=== PATIENT | male | born 1980 | race Two or more races ===

== ENCOUNTER 2017-03-17 08:35 | Emergency (ER) | payer SELFPAY ==
[2017-03-17 08:43] VITALS: BMI 27.4
--- NOTE | 2017-03-17 09:56 | PDOC ---
History of Present Illness - General Chief Complaint: Pain Stated Complaint: BACK SIDE PAIN Time Seen by Provider: 03/17/17 08:56 History Source: Patient Exam Limitations: No Limitations - History of Present Illness Initial Comments: 03/17/17 10:03 CHIEF COMPLAINT:rectal pain and lower abdominal discomfort HISTORY OF PRESENT ILLNESS:Patient is 36-year-old old male with a history of hemorrhoids here today c/o rectal pain over the last 2 weeks with increased urge to pass gas. He reports that passing gas causing sharp rectal pain. Pt. also has sharp rectal pain when having a bowel movement. BM"S have been daily moderate size, brown formed, with no rectal bleeding or blood noted on stool on some days having 2 BM's. Rectal pain is relieved after passing gas or having a bowel movement. Patient denies any nausea, vomiting, diarrhea, fever, chills or constipation. Patient denies feeling any external hemorrhoids. Patient also reports having lower abdominal pressure. Patient also reports having to ride on his motorcycle as his only means of transportation for the last month. Patient reports that rectal pain is intense when he hits a bump, however he has this rectal pain when not on motorcycle with passing gas or having a bowel movement. Patient denies straining to have a bowel movement or having constipated stool. Patient denies any dietary changes. Patient denies any other symptoms. 03/17/17 10:22 ALLERGIES: PCN PAST MEDICAL HX: HEMORRHOIDS PCP: DR. LAKESHA MARRERO Timing/Duration: getting worse, intermittent Severity: severe (rectal pain) Associated Symptoms: reports: other (rectal pain ) Past History - Past Medical History Allergies/Adverse Reactions: Allergies Allergy/AdvReac Type Severity Reaction Status Date / Time Penicillins Allergy Verified 03/17/17 08:41 shellfish derived Allergy Verified 03/17/17 08:41 Home Medications: Ambulatory Orders Levofloxacin [Levaquin] 750 mg PO DAILY #7 tablet 03/17/17 Metronidazole [Flagyl -] 500 mg PO TID #21 tablet 03/17/17 Other medical history: denies - Psycho/Social/Smoking Cessation Hx Suicidal Ideation: No Smoking History: Never smoked Information on smoking cessation initiated: No Hx Alcohol Use: No Drug/Substance Use Hx: No Substance Use Type: None Review of Systems - Review of Systems Able to Perform ROS?: Yes Constitutional: No: Symptoms Reported HEENTM: No: Symptoms Reported Respiratory: No: Symptoms reported Cardiac (ROS): No: Symptoms Reported ABD/GI: Yes: Other (severe rectal pain, lower abdominal pressure, increased urge to pass gas,) Musculoskeletal: No: Symptoms Reported Integumentary: No: Symptoms Reported Neurological: No: Symptoms reported *Physical Exam - Vital Signs Last Vital Signs Temp Pulse Resp BP Pulse Ox 97.9 F 74 18 127/88 100 03/17/17 08:37 03/17/17 08:37 03/17/17 08:37 03/17/17 08:37 03/17/17 08:37 - Physical Exam General Appearance: Yes: Appropriately Dressed Respiratory/Chest: positive: Lungs Clear, Normal Breath Sounds. negative: Chest Tender, Respiratory Distress Cardiovascular: positive: Regular Rhythm, Regular Rate, S1, S2 Gastrointestinal/Abdominal: positive: Normal Bowel Sounds, Tender (mid to left lower abdominal pain ), Soft, Organomegaly, Tenderness (mid lower and left lower abdominal ). negative: Distended, Guarding, Rebound, Hepatomegaly, Spleenomegaly Rectal Exam: positive: normal exam, normal rectal tone, other (no anal fizzure noted, no internal hemorrhoid or internal hemorrhoids). negative: decreased tone, hemorrhoids Musculoskeletal: positive: Normal Inspection. negative: CVA Tenderness, CVA Tenderness (R), CVA Tenderness (L), Decreased Range of Motion, Muscle Spasm, Vertebral Tenderness Integumentary: positive: Normal Color Neurologic: positive: Alert, Normal Response, Responsive ED Treatment Course - LABORATORY CBC & Chemistry Diagram: 03/17/17 10:30 03/17/17 10:30 Medical Decision Making - Medical Decision Making 03/17/17 10:18 Patient is 36-year-old old male with a history of hemorrhoids here today c/o rectal pain over the last 2 weeks with increased urge to pass gas. He reports that passing gas causing sharp rectal pain. Pt. also has sharp rectal pain when having a bowel movement. BM"S have been daily moderate size, brown formed, with no rectal bleeding or blood noted on stool on some days having 2 BM's. Rectal pain is relieved after passing gas or having a bowel movement. Patient denies any nausea, vomiting, diarrhea, fever, chills or constipation. Patient denies feeling any external hemorrhoids. Patient also reports having lower abdominal pressure. Patient also reports having to ride on his motorcycle as his only means of transportation for the last month. Patient reports that rectal pain is intense when he hits a bump, however he has this rectal pain when not on motorcycle with passing gas or having a bowel movement. Patient denies straining to have a bowel movement or having constipated stool. Patient denies any dietary changes. Patient denies any other symptoms. Differential includes but not limited to internal hemorrhoid, diverticulosis, diverticulitis, less likely anal fizzure or rectal pain due to riding on his motorcycle.Patient is stable will be transferred to main ED for further evaluation Dr. Maddox and charge nurse at [facility]. Rectal Pain PLAN: hemmocult Patient is stable will be transferred to main ED for further evaluation Dr. Maddox and charge nurse at [facility]. 03/17/17 10:22 *DC/Admit/Observation/Transfer Diagnosis at time of Disposition: Colitis - Discharge Dispostion Disposition: HOME Condition at time of disposition: Good - Prescriptions Prescriptions: Metronidazole [Flagyl -] 500 mg PO TID #21 tablet Levofloxacin [Levaquin] 750 mg PO DAILY #7 tablet - Referrals Referrals: Josh Fraga MD [Staff Physician] - - Patient Instructions Printed Discharge Instructions: DI for Colitis Additional Instructions: You have an infection in your colon. Please take the antibiotics as prescribed to treat it. You must follow up with a cash analyst for a colonoscopy to further evaluate the cause of your infection. Sometimes they may be due to masses or cancer. Call the number provided to make an appointment. Print Language: STATELESS - Post Discharge Activity Work/School Note: Back to Work
[2017-03-17 10:41] LABS: BASOPHIL 0.5 % (0-2.0); EOSINOPHIL 1.3 % (0-4.5); MCHC 33.8 g/dl (32.0-35.9); MEAN CELL VOLUME 88.7 fl (80-96); MEAN PLT VOLUME 8.3 fl (7.5-11.1); PLATELET COUNT 204 K/MM3 (134-434); RDW 13.2 % (11.9-15.9); WHITE BLOOD COUNT 5.6 K/mm3 (4.0-10.0)
[2017-03-17 11:08] LABS: ALBUMIN 4.5 g/dl (3.4-5.0); ALK PHOS 83 U/L (45-117); BILIRUBIN,TOTAL 0.5 mg/dL (0.2-1.0); CALCIUM 9.4 mg/dL (8.5-10.1); CO2 28 mmol/L (21-32); CREATININE 0.9 mg/dL (0.7-1.3); GLUCOSE,RANDOM 94 mg/dL (74-106); SGOT/AST 34 U/L (15-37); SGPT/ALT 69 U/L (12-78); TOT PROT 8.2 g/dl (6.4-8.2)
--- NOTE | 2017-03-17 11:18 | PDOC ---
*Physical Exam - Vital Signs Last Vital Signs Temp Pulse Resp BP Pulse Ox 97.9 F 74 18 127/88 100 03/17/17 08:37 03/17/17 08:37 03/17/17 08:37 03/17/17 08:37 03/17/17 08:37 - Physical Exam Comments: 03/17/17 11:08 GEN: WDWN, NAD HEENT: PERRL, moist mucosa Neck: nontender, supple, no lymphadenopathy Lungs: CTAB, no wheeze/rhonchi/rales CV: RRR, no m/r/g Abd: mild LLQ TTP and suprapubic TTP, no rebound/guarding Rectal: no hemorrhoids palpable, no anal fissures, prostate nontender, no bogginess, stool brown : normal genitalia, no scrotal masses or tenderness, no hernia ED Treatment Course - LABORATORY CBC & Chemistry Diagram: 03/17/17 10:30 03/17/17 10:30 - ADDITIONAL ORDERS Additional order review: Laboratory Results 03/17/17 09:41 Stool Occult Blood Negative 03/17/17 10:30 RBC 5.53 MCV 88.7 MCHC 33.8 RDW 13.2 MPV 8.3 Neutrophils % 52.0 Lymphocytes % 36.0 Monocytes % 10.2 Eosinophils % 1.3 Basophils % 0.5 - RADIOLOGY Radiology Studies Ordered: Category Date Time Status ABDOMEN & PELVIS CT WITH CONTR [CT] Stat CT Scan 03/17/17 10:17 Ordered Medical Decision Making - Medical Decision Making 03/17/17 11:19 36 M with no PMH presents with 2 weeks of colicky abdominal pain. He reports pain radiating from his rectum to his lower abdomen. It is associated with abdominal bloating and flatulence. Denies F/C. Denies N/V/D. Reports h/o hemorrhoids. States that he recently started riding a motorcycle. Denies scrotal pain. Denies dysuria. Denies blood in urine. No h/o STDs, denies high risk behavior. - Labs, UA - CTAP 03/17/17 15:39 CTAP shows likely colitis with possible infiltrative process. No abscess or perf. Will start levaquin/flagyl. Pt reassessed, is tolerating PO. Appears well, with mildly tender abdominal exam. Stable for DC. *DC/Admit/Observation/Transfer Diagnosis at time of Disposition: Colitis - Discharge Dispostion Disposition: HOME Condition at time of disposition: Good - Referrals Referrals: Josh Fraga MD [Staff Physician] - - Patient Instructions Printed Discharge Instructions: DI for Colitis Additional Instructions: You have an infection in your colon. Please take the antibiotics as prescribed to treat it. You must follow up with a engine dynamometer tester for a colonoscopy to further evaluate the cause of your infection. Sometimes they may be due to masses or cancer. Call the number provided to make an appointment. Print Language: TRINIDADIAN - Attestations Physician Attestion: 03/17/17 15:50 I, Dr. Tarik Vega MD, attest that this document has been prepared under my direction and personally reviewed by me in its entirety. I further attest, that it accurately reflects all work, treatment, procedures and medical decision -making performed by me.
[2017-03-17 11:52] LABS: ANION GAP 10 (8-16)
[2017-03-17 12:06] LABS: URINE APPEARANCE CLEAR; URINE BILIRUBIN NEGATIVE (NEGATIVE); URINE BLOOD NEGATIVE (NEGATIVE); URINE COLOR YELLOW; URINE GLUCOSE (UA) NEGATIVE (NEGATIVE); URINE KETONE NEGATIVE (NEGATIVE); URINE LEUK ESTERASE NEGATIVE (NEGATIVE); URINE NITRITE NEGATIVE (NEGATIVE); URINE PROTEIN NEGATIVE (NEGATIVE); URINE UROBILINOGEN NEGATIVE mg/dL (0.2-1.0)
[2017-03-17 12:53] VITALS: TEMP 98.2
[2017-03-17] MEDS ORDERED: LEVOFLOXACIN 500 MG TABLET (FP) PO ONE (15:31)
[2017-03-17] MEDS ORDERED: metroNIDAZOLE 250 MG TABLET PO ONE (15:32)
[2017-03-17] MEDS ORDERED: LEVOFLOXACIN 500 MG TABLET (FP) ONE (15:42)
[2017-03-17] MEDS ORDERED: metroNIDAZOLE 250 MG TABLET ONE (15:42)
[2017-03-17 16:05] VITALS: BP 131/76; PULSE 70
== END 2017-03-17 16:05 | disposition home or self-care (01) ==
LOC: JERFT 08:35 → JER 08:35
DX: K52.9 Noninfective gastroenteritis and colitis, unspecified (principal)
CPT/HCPCS: 36415; 74177-TC; 80053; 81003; 82272; 85025; 99282-25; Q9967

== ENCOUNTER 2018-07-25 11:46 | Emergency (ER) | payer OTHER ==
[2018-07-25 11:52] VITALS: BP 114/78; PULSE 84; TEMP 97.6; BMI 30.7
[2018-07-25] MEDS ORDERED: KETOROLAC TROMETHAMINE 60 MG/2 ML VIAL IM ONE (12:52)
[2018-07-25] MEDS ORDERED: KETOROLAC TROMETHAMINE 60 MG/2 ML VIAL ONE (12:57)
--- NOTE | 2018-07-25 12:57 | PDOC ---
History of Present Illness - General Chief Complaint: Back Pain Stated Complaint: BACK PAIN Time Seen by Provider: 07/25/18 12:45 - History of Present Illness Initial Comments: 07/25/18 12:54 37-year-old male without comorbidities presents for evaluation of lower back pain with right leg posterior lateral radiculopathy to the level of his knee without loss of bowel or bladder function times one month. Past History - Past Medical History Allergies/Adverse Reactions: Allergies Allergy/AdvReac Type Severity Reaction Status Date / Time Penicillins Allergy Verified 03/17/17 08:41 shellfish derived Allergy Verified 03/17/17 08:41 Home Medications: Ambulatory Orders Levofloxacin [Levaquin] 750 mg PO DAILY #7 tablet 03/17/17 metroNIDAZOLE [Flagyl -] 500 mg PO TID #21 tablet 03/17/17 Methylprednisolone [Medrol Dose Matthew] 4 mg PO ASDIR #21 tablet 07/25/18 COPD: No Diabetes: No Other medical history: back injury - Immunization History Immunization Up to Date: No - Suicide/Smoking/Psychosocial Hx Smoking History: Never smoked Have you smoked in the past 12 months: No Information on smoking cessation initiated: No Hx Alcohol Use: No Drug/Substance Use Hx: No Substance Use Type: None Review of Systems - Review of Systems Musculoskeletal: Yes: Back Pain *Physical Exam - Vital Signs Last Vital Signs Temp Pulse Resp BP Pulse Ox 97.6 F 84 18 114/78 98 07/25/18 11:49 07/25/18 11:49 07/25/18 11:49 07/25/18 11:49 07/25/18 11:49 - Physical Exam Comments: 07/25/18 12:54 Lumbar spine skin color and temperature are normal range of motion is slightly decreased. Mild right and left paralumbar muscle just spasm and tenderness. No midline tenderness. 5 out of 5 strength in bilateral lower extremities without gross sensorimotor deficits. Neurovascularly intact. Moderate Sedation - Procedure Monitoring Vital Signs: Procedure Monitoring Vital Signs Temperature 97.6 F 07/25/18 11:49 Pulse Rate 84 07/25/18 11:49 Respiratory Rate 18 07/25/18 11:49 Blood Pressure 114/78 07/25/18 11:49 O2 Sat by Pulse Oximetry (%) 98 07/25/18 11:49 Medical Decision Making - Medical Decision Making 07/25/18 12:55 Patient was seen at an urgent care yesterday given a prescription for Robaxin and Naprosyn. I've advised him to discontinue the Naprosyn start the Robaxin, which she has not done yet. And I will place him on a Medrol Dosepak and have him follow-up with spine surgery. *DC/Admit/Observation/Transfer Diagnosis at time of Disposition: Lumbar radiculopathy - Discharge Dispostion Disposition: HOME Condition at time of disposition: Stable Decision to Admit order: No - Prescriptions Prescriptions: Methylprednisolone [Medrol Dose Matthew] 4 mg PO ASDIR #21 tablet - Referrals Referrals: Andrea Hernandez MD [Staff Physician] - - Patient Instructions Printed Discharge Instructions: Lumbar Radiculopathy, DI for Lumbar Radiculopathy Additional Instructions: Return to the emergency room should symptoms worsen or go unresolved. Please stop the Naprosyn and Tums worsen or go unresolved and follow-up with spine surgery in 2-3 days for further evaluation and treatment options. Please continue start taking the Robaxin as directed. Please start the Medrol Dosepak tomorrow morning. Take the medications as directed. - Post Discharge Activity
== END 2018-07-25 13:05 | disposition home or self-care (01) ==
LOC: JERFT 11:46
PROC: 3E0233Z Introduction of Anti-inflammatory into Muscle, Percutaneous Approach (ICD-10-PCS; principal; 2018-07-25)
DX: M54.16 Radiculopathy, lumbar region (principal)
CPT/HCPCS: 99281-25

== ENCOUNTER 2020-12-21 20:42 | Emergency (ER) | payer OTHER ==
[2020-12-21 20:57] VITALS: BP 140/78; PULSE 86; BMI 31.9
[2020-12-21] MEDS ORDERED: KETOROLAC TROMETHAMINE 30 MG/1 ML VIAL IM ONE (21:44)
[2020-12-21] MEDS ORDERED: CYCLOBENZAPRINE HCL 5 MG TABLET PO ONE (21:45)
[2020-12-21] MEDS ORDERED: LIDOCAINE 5% TOPICAL PATCH TP ONE (21:45)
[2020-12-21] MEDS ORDERED: LIDOCAINE PATCH REMOVAL MC SCH (22:00)
[2020-12-21] MEDS ORDERED: KETOROLAC TROMETHAMINE 30 MG/1 ML VIAL ONE (22:07)
[2020-12-21] MEDS ORDERED: LIDOCAINE 5% TOPICAL PATCH ONE (22:07)
[2020-12-21] MEDS ORDERED: CYCLOBENZAPRINE HCL 10 MG TABLET (FP) ONE (22:07)
== END 2020-12-21 23:05 | disposition home or self-care (01) ==
LOC: JERFT 20:42
PROC: 3E0233Z Introduction of Anti-inflammatory into Muscle, Percutaneous Approach (ICD-10-PCS; principal; 2020-12-21)
DX: S46.911A Strain of unspecified muscle, fascia and tendon at shoulder and upper arm level, right arm, initial encounter (principal); M54.6 Pain in thoracic spine
CPT/HCPCS: 72070-TC-FY; 73030-TC-RT-FY; 73070-TC-RT-FY; 99285-25

== ENCOUNTER 2022-01-07 20:36 | Emergency (ER) | payer OTHER ==
[2022-01-07 20:46] VITALS: BP 129/78; PULSE 72; TEMP 98.2; BMI 31.9
[2022-01-07] MEDS ORDERED: DIPHTH,PERTUSS(ACELL),TET 0.5 ML DISP.SYRIN IM ONE ×2 (21:25→21:27)
== END 2022-01-07 21:30 | disposition home or self-care (01) ==
LOC: JER 20:36 → JERFT 20:36
PROC: 3E0234Z Introduction of Serum, Toxoid and Vaccine into Muscle, Percutaneous Approach (ICD-10-PCS; principal; 2022-01-07)
DX: S61.210A Laceration without foreign body of right index finger without damage to nail, initial encounter (principal); W26.8XXA Contact with other sharp object(s), not elsewhere classified, initial encounter
CPT/HCPCS: 90471; 90715; 99282-25

== ENCOUNTER 2024-03-19 14:31 | Emergency (ER) | payer OTHER ==
[2024-03-19 14:39] VITALS: BP 137/87; PULSE 87; RESP 20; TEMP 98.3; BMI 30.9
[2024-03-19] MEDS ORDERED: FAMOTIDINE 20 MG/50 ML IVPB 20 MG/50 ML MG IVPB ONE (16:28)
[2024-03-19] MEDS ORDERED: MAG HYDROX/AL HYDROX/SIMETH 30 ML UNIT-DOSE CUP ONE (16:28)
[2024-03-19 16:33] LABS: BASO % 0.8 % (0-2.0); EOS % 0.7 % (0-4.5); HEMATOCRIT 49.1 % (35.4-49); LYMPH % 37.6 % (8-40); MCH 30.7 pg (25.7-33.7); MCHC 34.6 g/dl (32.0-35.9); MEAN CELL VOLUME 88.7 fl (80-96); MEAN PLT VOLUME 7.8 fl (7.5-11.1); MONO % 8.8 % (3.8-10.2); NEUT % 52.1 % (42.8-82.8); PLATELET COUNT 232 10^3/uL (134-434); RBC 5.53 M/mm3 (4.00-5.60); RDW 13.3 % (11.9-15.9); WHITE BLOOD COUNT 4.1 K/mm3 (4.0-10.0)
[2024-03-19] MEDS: FAMOTIDINE 20 MG/50 ML IVPB 20 MG/50 ML MG IVPB ONE (16:34)
[2024-03-19] MEDS: MAG HYDROX/AL HYDROX/SIMETH 30 ML UNIT-DOSE CUP PO ONE (16:34)
[2024-03-19 16:50] LABS: POTASSIUM 4.3 mmol/L (3.5-5.1)
[2024-03-19 16:52] LABS: ALBUMIN 4.7 g/dl (3.4-5.0); BLOOD UREA NITROGEN 18.1 mg/dL (7-18); CALCIUM 9.6 mg/dL (8.5-10.1)
[2024-03-19 16:57] LABS: BILIRUBIN,TOTAL 0.8 mg/dL (0.2-1); TOT PROT 8.5 g/dl (6.4-8.2)
[2024-03-19 17:37] LABS: PH,URINE 5.5 (5.0-8.0); URINE APPEARANCE CLEAR; URINE BILIRUBIN SMALL (NEGATIVE); URINE COLOR DK YELLOW; URINE GLUCOSE (UA) NEGATIVE (NEGATIVE); URINE KETONE 15 mg/dl (NEGATIVE); URINE LEUK ESTERASE NEGATIVE (NEGATIVE); URINE NITRITE NEGATIVE (NEGATIVE); URINE PROTEIN 100 (NEGATIVE)
[2024-03-19 17:38] LABS: EPI CELLS 2.4 /uL (0-25.1); HYALINE CASTS 1.16 /uL (0-3.1); URINE BACTERIA 0.9 /uL (0-1359); URINE RBC 5.5 /uL (0-23.9)
[2024-03-19 17:45] LABS: HIV INTERPRETATION NEGATIVE (NEGATIVE)
[2024-03-19] MEDS: SODIUM CHLORIDE 0.9% 500 ML INFUS.BAG IV ONE (17:52)
== END 2024-03-19 19:27 | disposition home or self-care (01) ==
LOC: JER 14:31
PROC: 3E033GC Introduction of Other Therapeutic Substance into Peripheral Vein, Percutaneous Approach (ICD-10-PCS; principal; 2024-03-19)
DX: R10.32 Left lower quadrant pain (principal); G89.29 Other chronic pain
CPT/HCPCS: 36415; 74177-TC; 80053; 81003; 83690; 85025; 86803; 87086; 87389; 93005; 93010; 99285-25; Q9967

== ENCOUNTER 2024-06-26 04:36 | Day surgery (SDC) | payer OTHER ==
[2024-06-21 10:26] VITALS: BMI 31.4
[2024-06-26 12:21] VITALS: BP 114/77; PULSE 53; RESP 16; TEMP 97.2
== END 2024-06-26 12:23 | disposition home or self-care (01) ==
LOC: JASU-ENDO 04:36
PROVIDERS: ATTEND Internal Medicine Gastroenterology
PROC: 0DB78ZX Excision of Stomach, Pylorus, Via Natural or Artificial Opening Endoscopic, Diagnostic (ICD-10-PCS; 2024-06-26)
PROC: 0DB68ZX Excision of Stomach, Via Natural or Artificial Opening Endoscopic, Diagnostic (ICD-10-PCS; 2024-06-26)
PROC: 0DB28ZX Excision of Middle Esophagus, Via Natural or Artificial Opening Endoscopic, Diagnostic (ICD-10-PCS; 2024-06-26)
PROC: 0DB38ZX Excision of Lower Esophagus, Via Natural or Artificial Opening Endoscopic, Diagnostic (ICD-10-PCS; 2024-06-26)
PROC: 0DJD8ZZ Inspection of Lower Intestinal Tract, Via Natural or Artificial Opening Endoscopic (ICD-10-PCS; 2024-06-26)
PROC: 0DB98ZX Excision of Duodenum, Via Natural or Artificial Opening Endoscopic, Diagnostic (ICD-10-PCS; principal; 2024-06-26 10:00)
DX: Z12.11 Encounter for screening for malignant neoplasm of colon (principal); K64.8 Other hemorrhoids; K29.50 Unspecified chronic gastritis without bleeding; K44.9 Diaphragmatic hernia without obstruction or gangrene
CPT/HCPCS: 43239; G0121; 88305-TC; 88342-TC

== ENCOUNTER 2024-10-25 13:53 | Emergency (ER) | payer OTHER ==
[2024-10-25 14:21] VITALS: BP 117/72; PULSE 77; RESP 18; TEMP 98; BMI 30.4
[2024-10-25] MEDS ORDERED: IBUPROFEN 600 MG TABLET (FP) PO ONE (16:05)
[2024-10-25] MEDS: IBUPROFEN 600 MG TABLET (FP) PO ONE (16:06)
== END 2024-10-25 16:11 | disposition home or self-care (01) ==
LOC: JERFT 13:53
DX: S63.501A Unspecified sprain of right wrist, initial encounter (principal); V49.40XA Driver injured in collision with unspecified motor vehicles in traffic accident, initial encounter; Y92.410 Unspecified street and highway as the place of occurrence of the external cause
CPT/HCPCS: 73110-TC-RT-FY; 99283-25